=== PATIENT | female | born 1995 | race African-American/Black ===

== ENCOUNTER 2018-03-05 09:50 | Emergency (ER) | payer BC ==
[2018-03-05 09:55] VITALS: BP 116/64
--- NOTE | 2018-03-05 10:19 | ER Document Report ---
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 Is here visiting from [place], does not have any medications with her for this. Also has some oozing from scratching to the right ring finger Associated Symptoms: None Exacerbated by: Other Relieved by: Denies Similar symptoms previously: Yes Recently seen / treated by doctor: No - ROS ROS below otherwise negative: Yes Systems Reviewed and Negative: Yes All other systems reviewed and negative - CONSTITUTIONAL Constitutional: DENIES: Fever - EENT EENT: DENIES: Congestion - NEURO Neurology: DENIES: Headache - CARDIOVASCULAR Cardiovascular: DENIES: Chest pain - RESPIRATORY Respiratory: DENIES: Trouble Breathing - DERM Skin Problems: Rash Past Medical History - General Information source: Patient - Social History Smoking Status: Unknown if Ever Smoked Chew tobacco use (# tins/day): No Frequency of alcohol use: None Drug Abuse: None Lives with: Family Family History: Reviewed & Not Pertinent Patient has suicidal ideation: No Patient has homicidal ideation: No Pulmonary Medical History: Reports: Hx Asthma Endocrine Medical History: Reports: Hx Diabetes Mellitus Type 1 Past Surgical History: Reports: Hx Tonsillectomy Vertical Provider Document - CONSTITUTIONAL Agree With Documented VS: Yes Exam Limitations: No Limitations - INFECTION CONTROL TRAVEL OUTSIDE OF THE [place] IN LAST 30 DAYS: No - HEENT HEENT: Atraumatic - RESPIRATORY Respiratory: Breath Sounds Normal, No Respiratory Distress - CARDIOVASCULAR Cardiovascular: Regular Rate, Regular Rhythm - MUSCULOSKELETAL/EXTREMETIES Musculoskeletal/Extremeties: MAEW - NEURO Level of Consciousness: Awake, Alert - DERM Integumentary: Rash - Eczema noted to both hands. Excoriation noted to distal right ring finger. Course - Vital Signs Vital signs: Temp Pulse Resp BP Pulse Ox 98.8 F 85 18 116/64 97 03/05/18 09:53 03/05/18 09:53 03/05/18 09:53 03/05/18 09:53 03/05/18 09:53 Discharge - Discharge Clinical Impression: Eczema of both hands Condition: Good Disposition: HOME, SELF-CARE Additional Instructions: Use meds as prescribed [id number] Benadryl as needed for itching Keep hands clean and dry Follow-up with your doctor on return home Return is needed. Prescriptions: Cephalexin [Cephalexin 500 MG Capsule] 1 cap PO QID #28 capsule Clobetasol Propionate [Clobetasol Propionate Ointment] 1 applic TP BID #30 oint..gm. Hydrocortisone [Hydrocortisone 2.5% Cream 28 gm (Clinic Use)] 1 applic TOP BID PRN #1 tube PRN Reason:
== END 2018-03-05 10:25 | disposition home or self-care (01) ==
LOC: ER 09:50
DX: L30.9 Dermatitis, unspecified (principal); E10.9 Type 1 diabetes mellitus without complications
CPT/HCPCS: 99282

== ENCOUNTER 2018-05-17 02:52 | Emergency (ER) | payer BC ==
[2018-05-17 03:12] VITALS: BP 125/80
[2018-05-17] MEDS ORDERED: LIDOCAINE 4%/TETRACAINE 0.5%/EPI 0.18% 5 ML TOPICAL SOLN TOP ONE (03:49)
--- NOTE | 2018-05-17 03:50 | ER Document Report ---
HPI - HPI Pain Level: 5 Past Medical History - Social History Family History: Reviewed & Not Pertinent Pulmonary Medical History: Reports: Hx Asthma Endocrine Medical History: Reports: Hx Diabetes Mellitus Type 1 Renal/ Medical History: Denies: Hx Peritoneal Dialysis Past Surgical History: Reports: Hx Tonsillectomy Vertical Provider Document - INFECTION CONTROL TRAVEL OUTSIDE OF THE [place] IN LAST 30 DAYS: No Course - Vital Signs Vital signs: Temp Pulse Resp BP Pulse Ox 98.1 F 102 H 20 125/80 98 05/17/18 02:52 05/17/18 02:52 05/17/18 02:52 05/17/18 02:52 05/17/18 02:52
[2018-05-17] MEDS ORDERED: CEPHALEXIN 500 MG CAPSULE PO ONE (04:31)
[2018-05-17] MEDS ORDERED: SULFAMETHOXAZOLE/TRIMETHOPRIM 800-160 MG TABLET PO ONE (04:32)
--- NOTE | 2018-05-17 04:37 | ER Document Report ---
ED Extremity Problem, Lower - General Chief Complaint: Toe Injury Stated Complaint: TOE PAIN Time Seen by Provider: 05/17/18 03:28 Mode of Arrival: Ambulatory Information source: Patient Notes: Patient with complaint of possible infection around her right great toe. Patient reports that one week ago she had an ingrown toenail that she tried to fix on her own. Patient reports the toe is now swollen and painful. Denies any fevers. TRAVEL OUTSIDE OF THE [place] IN LAST 30 DAYS: No - Related Data Allergies/Adverse Reactions: No Known Allergies Allergy (Verified 03/05/18 09:50) Past Medical History - General Information source: Patient - Social History Smoking Status: Never Smoker Frequency of alcohol use: Occasional Drug Abuse: None Family History: Reviewed & Not Pertinent Patient has suicidal ideation: No Patient has homicidal ideation: No Pulmonary Medical History: Reports: Hx Asthma Endocrine Medical History: Reports: Hx Diabetes Mellitus Type 1 Renal/ Medical History: Denies: Hx Peritoneal Dialysis Past Surgical History: Reports: Hx Tonsillectomy Review of Systems - Review of Systems Constitutional: No symptoms reported EENT: No symptoms reported Cardiovascular: No symptoms reported Respiratory: No symptoms reported Gastrointestinal: No symptoms reported Genitourinary: No symptoms reported Female Genitourinary: No symptoms reported Musculoskeletal: No symptoms reported Skin: See HPI Hematologic/Lymphatic: No symptoms reported Neurological/Psychological: No symptoms reported Physical Exam - Vital signs Vitals: Temp Pulse Resp BP Pulse Ox 98.1 F 102 H 20 125/80 98 05/17/18 02:52 05/17/18 02:52 05/17/18 02:52 05/17/18 02:52 05/17/18 02:52 - Notes Notes: PHYSICAL EXAMINATION: GENERAL: Well-appearing, well-nourished and in no acute distress. HEAD: Atraumatic, normocephalic. EYES: Pupils equal round extraocular movements intact, conjunctiva are normal. ENT: Nares patent NECK: Normal range of motion LUNGS: No respiratory distress Musculoskeletal: Normal range of motion NEUROLOGICAL: Normal speech, normal gait. PSYCH: Normal mood, normal affect. SKIN: Warm, Dry, normal turgor, no rashes or lesions noted. Erythema noted to right great toe with pocket of yellowish discoloration. Course - Re-evaluation Re-evalutation: Incision and drainage performed, see procedure notes. Patient tolerated well. - Vital Signs Vital signs: Temp Pulse Resp BP Pulse Ox 98.1 F 102 H 20 125/80 98 05/17/18 02:52 05/17/18 02:52 05/17/18 02:52 05/17/18 02:52 05/17/18 02:52 Procedures - Incision and Drainage Right great toe Type: Simple Incision Method: Incision made with needle Discharge - Discharge Clinical Impression: Acute paronychia of toe of right foot Condition: Stable Disposition: HOME, SELF-CARE Additional Instructions: Paronychia You have an infection between the nail and the surrounding skin, called a paronychia. The germs infect the area after a minor skin injury, such as a hangnail. This infection is treated by releasing the pus. This is usually done by the skin from the nail. If the infection has spread underneath the nail, partial removal of the nail may be necessary. Hot-soak the area three or four times daily. Antibiotics are often given, but are not always necessary. Healing takes about a week. If pain or swelling becomes severe or if you develop fever or chills, call the doctor or return for re-examination. Please take the antibiotics as prescribed. As we discussed please use Epsom salt soaks 3-4 times a day. Keep the extremity elevated above the level of your heart, this will reduce some of the throbbing sensation. Please follow-up with your primary care provider next week for a follow-up. Prescriptions: Cephalexin Monohydrate [Keflex 500 mg Capsule] 500 mg PO Q6H 5 Days #20 capsule Sulfamethoxazole/Trimethoprim [Septra-Ds 800-160 mg Tablet] 1 tab PO BID #20 tablet
== END 2018-05-17 04:47 | disposition home or self-care (01) ==
LOC: ER 02:52
PROC: 0H9MXZZ Drainage of Right Foot Skin, External Approach (ICD-10-PCS; principal; 2018-05-17)
DX: L03.031 Cellulitis of right toe (principal); M79.89 Other specified soft tissue disorders; M79.674 Pain in right toe(s); E10.9 Type 1 diabetes mellitus without complications
CPT/HCPCS: 99283; 10060; J3490